=== PATIENT | female | born 1995 | race Caucasian/White ===

== ENCOUNTER 2019-01-25 15:33 | Emergency (ER) | payer SELFPAY ==
[~2019-01-25] VITALS: Ht 162.6 cm; Wt 53.6 kg
[2019-01-25 15:35] VITALS: Ht 162.6 cm; Wt 53.6 kg
== END 2019-01-25 16:45 | disposition left against medical advice (07) ==
LOC: FTE 15:33
DX: Z53.21 Procedure and treatment not carried out due to patient leaving prior to being seen by health care provider (principal)